=== PATIENT | male | born 1930 | race Caucasian/White ===

== ENCOUNTER 2019-11-04 14:20 | Emergency (ER) | payer MEDICARE, OTHER ==
--- NOTE | 2019-11-04 17:42 | EDM.PDOC ---
ED HPI GENERAL MEDICAL PROBLEM - General Chief Complaint: General Stated Complaint: ICD REPLACED YESTERDAY, SWOLLEN Time Seen by Provider: 11/04/19 17:30 Source of Information: Reports: Patient History Limitations: Reports: No Limitations - History of Present Illness INITIAL COMMENTS - FREE TEXT/NARRATIVE: This is an 89-year-old male who presents with concerns of a pacer pocket hematoma. He had a pacemaker placed yesterday in [place]. He is in the area vacationing. He noted today some bruising and expansion of the area around the pacemaker. He has no pain here. No tenderness. No fevers or chills. No redness or discharge. 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 He is on Coumadin. - Related Data Allergies Allergy/AdvReac Type Severity Reaction Status Date / Time No Known Allergies Allergy Verified 11/04/19 15:12 Home Meds: Home Meds Aspirin 81 mg PO DAILY 11/04/19 [History] Cholecalciferol (Vitamin D3) [Vitamin D3] 5,000 units PO DAILY 11/04/19 [History] Furosemide [Lasix] 20 mg PO DAILY 11/04/19 [History] Losartan [Cozaar] 12.5 mg PO DAILY 11/04/19 [History] Metoprolol Succinate [Toprol Xl] 50 mg PO DAILY 11/04/19 [History] Warfarin [Coumadin] 2.5 - 5 mg PO DAILY 11/04/19 [History] atorvaSTATin [Lipitor] 40 mg PO BEDTIME 11/04/19 [History] Social & Family History - Tobacco Use Smoking Status *Q: Never Smoker - Caffeine Use Caffeine Use: Reports: Soda - Recreational Drug Use Recreational Drug Use: No ED ROS GENERAL - Review of Systems Review Of Systems: See Below Constitutional: Reports: No Symptoms HEENT: Reports: No Symptoms Respiratory: Reports: No Symptoms Cardiovascular: Reports: No Symptoms Endocrine: Reports: No Symptoms GI/Abdominal: Reports: No Symptoms : Reports: No Symptoms Musculoskeletal: Reports: No Symptoms Skin: Reports: Bruising Neurological: Reports: No Symptoms Psychiatric: Reports: No Symptoms Hematologic/Lymphatic: Reports: No Symptoms Immunologic: Reports: No Symptoms ED EXAM, GENERAL - Physical Exam Exam: See Below Exam Limited By: No Limitations General Appearance: Alert, No Apparent Distress Ears: Normal External Exam Nose: Normal Inspection Throat/Mouth: Normal Inspection Head: Atraumatic, Normocephalic Neck: Normal Inspection Respiratory/Chest: Lungs Clear, Other (Ecchymosis and swelling over the site of left pacemaker placement. There is no tenderness. There is no induration. There is no erythema.) GI/Abdominal: Soft, Non-Tender Back Exam: Normal Inspection Extremities: Normal Inspection Neurological: Alert, Oriented Psychiatric: Normal Affect, Normal Mood Skin Exam: Warm, Dry Course - Vital Signs Last Recorded V/S: Last Vital Signs Temp 36.2 C 11/04/19 17:48 Pulse 69 11/04/19 17:48 Resp 16 11/04/19 17:48 BP 120/71 11/04/19 17:48 Pulse Ox 95 11/04/19 17:48 - Re-Assessments/Exams Free Text/Narrative Re-Assessment/Exam: This is a 89-year-old on Coumadin for history of cardiac disease who presents with concerns of a pacemaker pocket hematoma. He had a new pacemaker placed yesterday. He does have a hematoma on exam, but there is no tenderness or signs of infection. He is having no pain. The skin is not particularly taught. I think it is safe for him to continue to observe this. I asked that if he develops significant pain, redness, worsening swelling, or fevers that he seek the care of a physician. 11/04/19 19:58 Departure - Departure Time of Disposition: 17:38 Disposition: Home, Self-Care 01 Clinical Impression: Pacemaker pocket hematoma Qualifiers: Encounter type: initial encounter Qualified Code(s): T82.837A - Hemorrhage due to cardiac prosthetic devices, implants and grafts, initial encounter - Discharge Information *PRESCRIPTION DRUG MONITORING PROGRAM REVIEWED*: No *COPY OF PRESCRIPTION DRUG MONITORING REPORT IN PATIENT CORY: No Referrals: PCP,None [Primary Care Provider] - Forms: ED Department Discharge Additional Instructions: You have what's called a hematoma (blood collection) around your pacer. This can become infected, so it is very important that you monitor the site for increased swelling, pain, redness, or discharge and see a physician if this happens. Sepsis Event Note (ED) - Focused Exam Vital Signs: Vital Signs Temp Pulse Resp BP Pulse Ox 11/04/19 17:48 36.2 C 69 16 120/71 95 11/04/19 15:11 36.2 C 69 16 120/71 95
== END 2019-11-04 17:57 | disposition home or self-care (01) ==
LOC: JP.ED 14:20
DX: T82.897A Other specified complication of cardiac prosthetic devices, implants and grafts, initial encounter (principal); Z79.82 Long term (current) use of aspirin; Z79.01 Long term (current) use of anticoagulants; Z79.899 Other long term (current) drug therapy
CPT/HCPCS: 99283